=== PATIENT | female | born 1990 | race Two or more races ===

== ENCOUNTER 2020-10-30 02:49 | Emergency (ER) | payer MEDICAID, OTHER ==
[~2020-10-30] VITALS: Ht 152.4 cm; Wt 78.0 kg
[2020-10-30 06:52] VITALS: BP 108/69
== END 2020-10-30 06:40 | disposition home or self-care (01) ==
LOC: ER 02:49
DX: S39.012A Strain of muscle, fascia and tendon of lower back, initial encounter (principal); S20.211A Contusion of right front wall of thorax, initial encounter; V49.49XA Driver injured in collision with other motor vehicles in traffic accident, initial encounter; Y93.89 Activity, other specified; Y92.488 Other paved roadways as the place of occurrence of the external cause; Y99.8 Other external cause status
CPT/HCPCS: 71046; 72100